=== PATIENT | female | born 1945 | race Hispanic/Latino ===

== ENCOUNTER → 2020-01-27 | Outpatient (CLI) | payer MEDICARE, OTHER ==
[2020-01-27 09:42] LABS: BASOPHILS % (AUTO) 0.6 % (0.0-5.0); EOSINOPHILS % (AUTO) 1.4 % (0.0-8.0); HEMATOCRIT 39.6 % (36-48); LYMPHOCYTES % (AUTO) 40.6 % (21.0-51.0); MEAN CORPUSCULAR HEMOGLOBIN 27.7 pg (27.0-33.0); MEAN CORPUSCULAR HGB CONC 31.6 g/dL (32.0-36.0); MEAN CORPUSCULAR VOLUME 87.8 fL (79-99); MONOCYTES % (AUTO) 9.9 % (3.0-13.0); NEUTROPHILS % (AUTO) 47.2 % (40.0-77.0); PLATELET COUNT (AUTO) 173 K/uL (130-400); RED BLOOD CELL COUNT(AUTO) 4.51 MIL/uL (4.00-5.50); RED CELL DISTRIBUTION WIDTH 13.1 % (11.0-15.5); WHITE BLOOD COUNT (AUTO) 3.6 K/uL (4.8-10.8)
[2020-01-27 09:54] LABS: CREATININE 0.8 mg/dL (0.5-1.5); POTASSIUM 4.3 mmol/L (3.5-5.1)
== END | disposition home or self-care (01) ==
LOC: LAB 08:51
PROVIDERS: ATTEND Urology
DX: R31.21 Asymptomatic microscopic hematuria (principal)
CPT/HCPCS: 36415; 80048; 85025

== ENCOUNTER → 2020-01-30 | Outpatient (CLI) | payer MEDICARE, OTHER ==
[~2020-01-30] MED LIST: IOHEXOL-350 75 ML VIAL IV ONE
== END | disposition home or self-care (01) ==
LOC: RAH 10:00
PROVIDERS: ATTEND Urology
DX: N28.1 Cyst of kidney, acquired (principal); R31.21 Asymptomatic microscopic hematuria
CPT/HCPCS: 74178; Q9967

== ENCOUNTER → 2023-06-23 | Outpatient (CLI) | payer MEDICARE, OTHER | END | disposition home or self-care (01) | LOC: RAH 10:13 | PROVIDERS: ATTEND Family Medicine | DX: R10.9 Unspecified abdominal pain (principal); K76.89 Other specified diseases of liver; M47.815 Spondylosis without myelopathy or radiculopathy, thoracolumbar region; M41.80 Other forms of scoliosis, site unspecified | CPT/HCPCS: 74160; Q9967 ==

== ENCOUNTER 2024-11-21 06:18 | Emergency (ER) | payer MEDICARE, OTHER ==
[~2024-11-21] VITALS: Ht 162.6 cm; Wt 75.3 kg
[2024-11-21 06:19] VITALS: TEMP 96.8
--- NOTE | 2024-11-21 06:24 | ERN ---
General Chief Complaint: Hypertension Stated Complaint: HIGH BLOOD PRESSURE ONSET 129 Time Seen by MD: 06:20 Source: patient, EMS History of Present Illness Initial Comments PATIENT IS A 79-YEAR-OLD FEMALE COMING IN DUE TO ELEVATED BLOOD PRESSURE. LYNDSAY SEE STATES THAT SHE USUALLY CHECKS HER BLOOD PRESSURE THIS TIME CHECKED HER BLOOD PRESSURE NOTICED IT WAS HIGH SO SHE TOOK HER MEDICATION HALF OF HER MEDICATION AND STATES SHE WAITED FOR ABOUT 3 HOURS DID NOT SEE A CHANGE IN HER BLOOD PRESSURE SO SHE DECIDED TO COME IN FOR FURTHER EVALUATION. ENROUTE VIA EMS HER BLOOD PRESSURE IMPROVED WHEN SHE ARRIVED IN ER BLOOD PRESSURE WAS IN THE 150S. PATIENT HAS BEEN ASYMPTOMATIC. ROS Dictation CONSTITUTIONAL: NO CHILLS, NO FEVER, NO WEAKNESS, NO DIAPHORESIS, NO MALAISE. HEAD/FACE: NO SIGNS OF TRAUMA. EENT: NO EYE PAIN, NO BLURRED VISION, NO TEARING, NO DOUBLE VISION, NO EAR PAIN, NO EAR DISCHARGE, NO NOSE PAIN, NO NASAL CONGESTION, NO THROAT PAIN, NO THROAT SWELLING, NO MOUTH PAIN. RESPIRATORY: NO COUGH, NO ORTHOPNEA, NO SOB, NO STRIDOR, NO WHEEZING. CARDIOVASCULAR: NO CHEST PAIN, NO EDEMA, NO PALPITATIONS, NO SYNCOPE. GASTROINTESTINAL/ABDOMINAL: NO ABDOMINAL PAIN, NO CONSTIPATION, NO DIARRHEA, NO NAUSEA, NO VOMITING. GENITOURINARY: NO ABNORMAL DISCHARGE, NO DYSURIA, NO FREQUENT URINATION, NO HEMATURIA. NO COMPLAINTS OF PAIN IN THE GENITALS. MUSCULOSKELETAL: NO BACK PAIN, NO GOUT, NO JOINT PAIN, NO JOINT SWELLING, NO MUSCLE PAIN, NO MUSCLE STIFFNESS, NO NECK PAIN. INTEGUMENTARY: NO CHANGE IN COLOR, NO CHANGE IN HAIR/NAILS, NO DRYNESS, NO LESION, NO LUMPS, NO RASH. NEUROLOGICAL/PSYCH: NO ANXIETY, NOT DEPRESSED, NO EMOTIONAL PROBLEM, NO HEADACHE, NO NUMBNESS, NO PRE-EXISTING DEFICIT, NO HISTORY OF SEIZURES, NO TREMORS, NO WEAKNESS. HEMATOLOGIC/LYMPHATIC: NOT ANEMIC, NO HISTORY OF BLOOD CLOTS, NO APPARENT BLEEDING, NO BRUISING, GLANDS NOT SWOLLEN. ALL SYSTEMS NEGATIVE, EXCEPT NOTED. Physical Exam Physical Exam Dictation VITAL SIGNS: REVIEWED. GENERAL APPEARANCE: ALERT, ORIENTED X3, NO ACUTE DISTRESS, OBESE. HEAD AND FACE: NON-TRAUMATIC. EYES: PERRL, PINK CONJUNCTIVAS, EYELID NO TRAUMA, ANTERIOR CHAMBER CLEAR. EARS: PINNAS INTACT AND NO SIGNS OF TRAUMA OR ERYTHEMA. EAR CANALS CLEAR AND NO DISCHARGE. TMS NO ERYTHEMA. NOSE: NO DISCHARGE, NO BLEEDING. OROPHARYNX: MOUTH NORMAL, TEETH NO CARIES, TONGUE PINK. PHARYNX CLEAR, NO ERYTHEMA. TONSILS NO EXUDATES, NO ABSCESSES NOTED. MUCOUS MEMBRANE MOIST. NECK: SUPPLE, NON-TENDER, NO THYROMEGALY, NO MASSES, NO JVD, NO BRUITS. BREAST: DEFERRED. CHEST: NO TENDERNESS, NO CREPITUS, NO PARADOXICAL MOVEMENT, NO RETRACTIONS. LUNGS: CLEAR, WELL-VENTILATED, SYMMETRIC, NO RALES, NO WHEEZING, NO RHONCHI, NO STRIDOR, GOOD BREATH SOUNDS BILATERALLY. HEART: REGULAR RATE, REGULAR RHYTHM, NO MURMUR, NO GALLOPS. VASCULAR: NO PERIPHERAL EDEMA. ABDOMEN: SOFT, POSITIVE BOWEL SOUNDS, NONDISTENDED, NO GUARDING, NONTENDER, NO REBOUND, NO MASSES NO HEPATOMEGALY, NO SPLENOMEGALY, NO SULTANA'S SIGN, NO HERNIAS. RECTAL: DEFERRED. GENITAL: DEFERRED. NEUROLOGICAL: NORMAL SPEECH, GROSS MOTOR FUNCTION INTACT, GROSS SENSORY FUNCTION INTACT. MUSCULOSKELETAL: NECK NONTENDER, FULL RANGE OF MOTION, BACK NONTENDER, FULL RANGE OF MOTION. EXTREMITIES: NONTENDER, FULL RANGE OF MOTION. SKIN: COLOR PINK, DRY, NO TURGOR, NO RASH, NO LACERATIONS, NO ABRASIONS, NO CONTUSIONS. LYMPHATICS: DEFERRED. Results Laboratory and Microbiology Labs Reviewed?: Yes MDM MDM: DIFFERENTIAL DIAGNOSIS: HISTORY OF HYPERTENSION, PATIENT IS A 79-YEAR-OLD FEMALE COMING IN DUE TO ELEVATED BLOOD PRESSURE READING. PATIENT HAS BEEN ASYMPTOMATIC SINCE SHE CHECKED BLOOD PRESSURE. SHE WAS A LITTLE CONCERNED BECAUSE HER BLOOD PRESSURE WAS ELEVATED. SHE STATES HER BLOOD PRESSURE WAS IN THE 170S WAS CONCERNED AND TOOK HALF OF HER BLOOD PRESSURE MEDICATION PATIENT ARRIVED TO THE ER TO BLOOD PRESSURE READINGS HILAR AREAS SEEN A TREND IN THE DOWNWARD DIRECTION. PATIENT HAS REMAINED ASYMPTOMATIC THROUGHOUT ER VISIT. BLOOD PRESSURE WAS REPEATED ON TWO SEPARATE LOCATIONS IN SHOWED A DOWNWARD TREND. PATIENT WILL BE DISCHARGED IN STABLE CONDITION WITH A DIAGNOSIS OF HISTORY OF HYPERTENSION. ED Course Vital Signs Date Time Temp Pulse Resp B/P (MAP) Pulse Ox O2 Delivery O2 Flow Rate FiO2 11/21/24 06:27 60 16 164/74 99 Room Air* 0 21 11/21/24 06:19 96.8 65 16 157/79 100 Room Air 0 DX & DISP Disposition: Discharge Departure Impression: Primary Impression: History of hypertension Condition: Stable Scripts Clonidine HCl (Clonidine HCl) 0.1 Mg Tablet 1 TAB PO HS PRN for IF SBP GREATER THAN 170 for 10 Days, #10 TAB 0 Refills Prov: KEESHA LOMAX MD 11/21/24 Additional Instructions: FOLLOW-UP WITH PRIMARY CARE PROVIDER IN 1 TO 2 DAYS. TAKE MEDICATIONS DIRECTED HERE IN THE EMERGENCY ROOM. OKAY TO CONTINUE HOME MEDICATIONS UNLESS OTHERWISE DISCUSSED DURING YOUR VISIT IN THE EMERGENCY ROOM TODAY. RETURN TO YOUR NEAREST EMERGENCY ROOM IF SYMPTOMS WORSEN OR IF THERE IS NO IMPROVEMENT. CALL 911 IF YOU NEED IMMEDIATE ASSISTANCE. TAKE TYLENOL [id number] NEEDED AND IF NO CONTRAINDICATIONS ARE PRESENT. INCREASE ORAL HYDRATION. A WOUND CULTURE OR URINE CULTURE WAS ORDERED HERE IN THE EMERGENCY ROOM DEPARTMENT PLEASE FOLLOW-UP WITH PRIMARY CARE PROVIDER AND ADVISE THEM TO GET REPEAT PORTS FROM OUR FACILITY. IF YOU HAD ANY MARCELLA WRAP/SPLINTS THAT WERE APPLIED HERE, PLEASE DO NOT REMOVE THEM UNTIL YOU SEE YOUR PRIMARY CARE OR SPECIALTY. REFERRALS: Referrals: KENNY RAY MD (PCP) Time of Disposition: 06:47 KEESHA LOMAX MD Nov 21, 2024 06:24
[2024-11-21 06:47] VITALS: BP 168/78; PULSE 56; RESP 18; O2SAT 99
[2024-11-21] MEDS ORDERED: CLON0.1T PO (06:48)
== END 2024-11-21 06:55 | disposition home or self-care (01) ==
LOC: EDH 06:18
DX: I10 Essential (primary) hypertension (principal)
CPT/HCPCS: 99283

== ENCOUNTER → 2025-08-23 | Outpatient (CLI) | payer MEDICARE, OTHER ==
[~2025-08-23] MED LIST changes: +CLON0.1T PO; -IOHEXOL-350 75 ML VIAL IV ONE
--- NOTE | 2025-08-23 13:08 | HMCIMG ---
DOUBLE CONTRAST UPPER GI SERIES: CLINICAL HISTORY: Heartburn; epigastric pain; dysphagia Finding: The study was performed using provocative maneuvers After swallowing effervescent crystal and thick barium, there is no definite intrinsic or extrinsic lesion seen in the esophagus. There is mild grade 1 esophageal reflux. There is no hiatal hernia The stomach is normal in size, shape, and configuration. The rugal folds appear to be normal. The duodenal bulb, duodenal sweep, and upper jejunum appear to be normal. Fluoroscopy time: 1.9 minutes IMPRESSION: Mild grade 1 esophageal reflux Otherwise NORMAL DOUBLE CONTRAST UPPER GI SERIES.
== END | disposition home or self-care (01) ==
LOC: RAH 09:43
PROVIDERS: ATTEND Internal Medicine
DX: K21.9 Gastro-esophageal reflux disease without esophagitis (principal); R10.13 Epigastric pain; R13.10 Dysphagia, unspecified
CPT/HCPCS: 74240